=== PATIENT | female | born 1995 | race Caucasian/White ===

== ENCOUNTER 2018-09-04 12:10 | Emergency (ER) | payer OTHER ==
[2018-09-04] MEDS ORDERED: LIDOCAINE 2% JELLY 5 ML TUBE TP ONE (12:21)
[2018-09-04] MEDS ORDERED: AMOXICILLIN/CLAVULANATE POT 875/125 MG TAB PO ONE (12:21)
--- NOTE | 2018-09-04 12:24 | EDPHY ---
H & P Time Seen by Provider: 09/04/18 12:12 HPI/ROS: This patient presents with dog bite to the nose. 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 She also reports superficial abrasion type injury to her upper lip in the intraoral mucosa from the same incident. She reports moderate pain. There was moderate bleeding prior to arrival that stop with direct pressure. She is accompanied by her grandmother who drove her in by private vehicle for evaluation. ROS: Neuro: No numbness or tingling Integumentary: No other skin injuries 5 point review of symptoms is performed and otherwise negative with exception of pertinent positives and negatives listed in HPI and ROS Physical Exam: Physical Exam Vital signs are normal. General: No acute distress HEENT: Patient is a 2.5 cm linear superficial laceration oriented vertically to the bridge of the nose with a small skin avulsion approximately 5 mm x 1 cm in size to the middle of this wound oriented horizontally. Subcutaneous tissues exposed at the area of the skin avulsion. There is no bony tenderness the nose and nares are clear bilaterally no other facial injuries appreciated at this time except for a superficial abrasion to the buccal mucosa of the upper lip with no active bleeding. Eyes: Pupils equal and react to light. Extraocular motions are intact. Lungs: No respiratory distress. Cardiac: Brisk capillary refill is intact throughout. Skin: No rash or pallor. Neuro: Alert and oriented x3 with no sensorimotor deficits. Cranial nerves 2- 12 grossly intact Constitutional: Initial Vital Signs Temperature (C) 36.7 C 09/04/18 12:17 Heart Rate 86 09/04/18 12:17 Respiratory Rate 16 09/04/18 12:17 Blood Pressure 127/100 H 09/04/18 12:17 O2 Sat (%) 94 09/04/18 12:17 O2 Delivery Mode Room Air Allergies/Adverse Reactions: No Known Allergies Allergy (Unverified 09/04/18 12:16) Home Medications: Medication Instructions Recorded Amoxicillin/Clavulanate Pot 875 mg PO BID #10 tab 09/04/18 [Augmentin 875 MG TAB (*)] Duloxetine HCl 09/04/18 MDM/Departure - MDM Procedures: The wound is 2.3 cm x 1 cm with skin avulsion in the middle. The wound was copiously irrigated with saline. The wound was explored for foreign bodies and none were found. The wound was prepped and draped in the normal sterile fashion. The wound was anesthetized using 2% topical lidocaine followed by 1% plain lidocaine with sodium bicarb buffer, 30 gauge needle -2 mL with good effect. The edges were reapproximated using 6 0 Prolene -3 running sutures in 4 interrupted sutures with good hemostasis and cosmesis. The patient tolerated the procedure well. There were no complications. Medications Given: Discontinued Medications Amoxicillin/Clavulanate Potassium (Augmentin 875mg) 875 mg PO EDNOW ONE PRN Reason: Protocol Stop: 09/04/18 12:22 Last Admin: 09/04/18 12:32 Dose: 875 mg Lidocaine (Lidocaine 2% Jelly) 1 michelet TP EDNOW ONE Stop: 09/04/18 12:22 Last Admin: 09/04/18 12:32 Dose: 1 michelet ED Course/Re-evaluation: 2% topical lidocaine jelly was applied to the nose Augmentin 875 p.o. Ibuprofen 600 mg p.o. For facial pain. Discussion: Patient with a dog bite to the nose that warranted sutures for cosmetic purposes. The dog's immunizations are up-to-date. There is no evidence of bony injury to the nose or other complicating factors. She has associated superficial abrasion to the intraoral region without any suturable intraoral injuries. Plan to treat her with Augmentin prophylactically. She understands need to return emergency department should she develop any signs of infection prior to planned 5-7 days return for suture removal. The patient will likely warrant a Steri-Strips oriented vertically over the wound at this time of suture removal - Depart Disposition: Home, Routine, Self-Care Clinical Impression: Dog bite of face Qualifiers: Encounter type: initial encounter Qualified Code(s): S01.85XA - Open bite of other part of head, initial encounter Nasal laceration Qualifiers: Encounter type: initial encounter Qualified Code(s): S01.21XA - Laceration without foreign body of nose, initial encounter Abrasion of intraoral region Qualifiers: Encounter type: initial encounter Qualified Code(s): S00.512A - Abrasion of oral cavity, initial encounter Condition: Good Instructions: Animal Bite (ED), Facial Laceration (ED) Additional Instructions: Diagnoses: 1. Dog bite face 2. Nasal laceration 3. Intraoral abrasion Plan: Augmentin antibiotic next dose this evening and continue for 5 days. Take yogurt or probiotic while on this to prevent diarrhea Keep the nasal laceration clean and dry for the next 2 days, then clean it daily with warm soapy water Return in 5 days for wound evaluation and likely suture removal Ibuprofen Tylenol for pain as needed Soft diet for the next 5 days and rinse and spit with half-strength peroxide after meals Return sooner if he develops redness, discharge or any other concerns for infection. Prescriptions: Amoxicillin/Clavulanate Pot [Augmentin 875 MG TAB (*)] 875 mg PO BID #10 tab
[2018-09-04] MEDS ORDERED: IBUPROFEN 600 MG TAB PO ONE (13:47)
[2018-09-04 14:16] VITALS: BP 118/79
== END 2018-09-04 14:23 | disposition home or self-care (01) ==
LOC: CED 12:10
PROC: 09QKXZZ Repair Nasal Mucosa and Soft Tissue, External Approach (ICD-10-PCS; principal; 2018-09-04)
DX: S01.25XA Open bite of nose, initial encounter (principal); S00.511A Abrasion of lip, initial encounter; W54.0XXA Bitten by dog, initial encounter; Y93.K3 Activity, grooming and shearing an animal; Y99.0 Civilian activity done for income or pay